=== PATIENT | female | born 1980 | race Caucasian/White ===

== ENCOUNTER 2017-04-26 19:11 | Emergency (ER) | payer BC, OTHER ==
[2017-04-26] MEDS ORDERED: Naprosyn 500 MG PO ONE (19:29)
[2017-04-26] MEDS ORDERED: Rocephin 1000 MG INJ IM ONE (19:29)
--- NOTE | 2017-04-26 19:34 | ERPHSYRPT ---
- History of Present Illness Time Seen by Provider: 04/26/17 19:24 Source: patient Exam Limitations: no limitations Patient Subjective Stated Complaint: Pt C/O sore throat x 5 days with productive cough and itchy throat. Was seen on at clinic for this but throat discomfort has increased since. Triage Nursing Assessment: Pt alert, oriented, answers all questions appropriately. Skin pink, warm, dry. Resps non-labored. Pt ambulatory to tx room, steady gait noted. Rednes noted to posterior pharnyx with exudate present right side. Lung sounds clear all singh. Physician History: FOR THE PAST 5 DAYS PT HAS HAD A SORE THROAT AND COUGH PRODUCTIVE OF GREEN PHLEGM; DENIES VOMITING, CHEST PAIN, SHORTNESS OF AIR. Allergies/Adverse Reactions: Penicillins Allergy (Verified 10/30/12 23:26) Home Medications: Acetaminophen 500 mg [Tylenol Extra Strength 500 mg] 500 mg PO Q4-6HPRN PRN 10/31/12 [History] Fiber [Fiber Choice] 1 each PO QID PRN 10/31/12 [History] Small Red Pill 10/31/12 [History] Hx Tetanus, Diphtheria Vaccination/Date Given: No Hx Influenza Vaccination/Date Given: No Hx Pneumococcal Vaccination/Date Given: No Immunizations Up to Date: Yes - Review of Systems Ears, Nose, & Throat: Throat Pain Respiratory: Cough, No Dyspnea Cardiac: No Chest Pain Abdominal/Gastrointestinal: No Vomiting All Other Systems: Reviewed and Negative - Past Medical History Pertinent Past Medical History: No Neurological History: No Pertinent History ENT History: No Pertinent History Cardiac History: No Pertinent History Respiratory History: No Pertinent History Endocrine Medical History: No Pertinent History Musculoskeletal History: No Pertinent History GI Medical History: No Pertinent History History: No Pertinent History Psycho-Social History: No Pertinent History Female Reproductive Disorders: No Pertinent History - Past Surgical History Past Surgical History: Yes Neuro Surgical History: No Pertinent History Cardiac: No Pertinent History Respiratory: No Pertinent History Gastrointestinal: No Pertinent History Genitourinary: No Pertinent History Musculoskeletal: No Pertinent History Female Surgical History: Section, Tubal Ligation Other Surgical History: tonsillectomy-10/21/12 - Social History Smoking Status: Never smoker Exposure to second hand smoke: No Drug Use: none Patient Lives Alone: No - Female History Hx Last Menstrual Period: 04/06/17 Hx Now: No - Nursing Vital Signs Nursing Vital Signs: Initial Vital Signs Temperature 98.0 F 04/26/17 19:22 Pulse Rate 83 04/26/17 19:22 Respiratory Rate 16 04/26/17 19:22 Blood Pressure 168/92 04/26/17 19:22 O2 Sat by Pulse Oximetry 99 04/26/17 19:22 Pain Scale Pain Intensity 3 - Physical Exam General Appearance: alert Eye Exam: PERRL/EOMI Ears, Nose, Throat Exam: TMs normal, moist mucous membranes, pharyngeal erythema Neck Exam: normal inspection Respiratory Exam: lungs clear Cardiovascular Exam: normal heart sounds Gastrointestinal/Abdomen Exam: normal bowel sounds Back Exam: normal range of motion Neurologic Exam: alert, cooperative Skin Exam: warm, dry SpO2 Interpretation: normal SpO2: 99 Oxygen Delivery: Room Air - Course Nursing assessment & vital signs reviewed: Yes Ordered Tests: Medication Summary Discontinued Medications Generic Name Dose Route Start Last Admin Trade Name Freq PRN Reason Stop Dose Admin Ceftriaxone Sodium 1,000 mg 04/26/17 19:29 Rocephin 1000 Mg Inj IM 04/26/17 19:30 STAT ONE Naproxen 500 mg 04/26/17 19:29 Naprosyn 500 Mg PO 04/26/17 19:30 STAT ONE - Departure Time of Disposition: 19:34 Departure Disposition: Home Clinical Impression: PHARYNGITIS Condition: Stable Critical Care Time: No Referrals: ZEYAD GONZALEZ [Primary Care Provider] - Instructions: Pharyngitis/Tonsillopharyngitis -- Adult Additional Instructions: FOLLOW UP WITH PRIVATE DOCTOR TOMORROW. Prescriptions: Guaifenesin/Codeine Phosphate [Robitussin AC Syrup] 10 ml PO Q4H PRN PRN #120 ml PRN Reason: Cough Azithromycin 250 mg [Zithromax 250 MG TABLET] 250 mg PO ZPACK #6 tablet
[2017-04-26] MEDS ORDERED: XYLOCAINE 1% HCL 20 ML MDV ONE (19:35)
[2017-04-26] MEDS ORDERED: Rocephin 1000 MG INJ ONE (19:35)
[2017-04-26 20:03] VITALS: BP 159/105; PULSE 86; O2SAT 97
== END 2017-04-26 20:00 | disposition home or self-care (01) ==
LOC: ED 19:11
DX: J02.9 Acute pharyngitis, unspecified (principal)
CPT/HCPCS: 96372; 99284; J0696; A9270-GY

== ENCOUNTER 2019-11-11 22:48 | Emergency (ER) | payer SELFPAY ==
[2019-11-11] MEDS ORDERED: Tobrex EYE DROPS 5 ML OP ONE ×2 (23:11→23:13)
--- NOTE | 2019-11-11 23:16 | ERPHSYRPT ---
- History of Present Illness Time Seen by Provider: 11/11/19 23:11 Source: patient Exam Limitations: no limitations Physician History: Patient is a 39-year-old white female who presents with a complaint of pain swelling and watering of the right eye. Location: right eye Severity: moderate Apparent Injury: no Associated Symptoms: burning, itching, redness, matting, eyelid swelling Visual Assistive Devices: None Chemical Exposure: No Trauma: No Welding Arc/Tanning Bed Exposure: No Allergies/Adverse Reactions: Penicillins Allergy (Verified 11/11/19 22:52) Hx Tetanus, Diphtheria Vaccination/Date Given: No Hx Influenza Vaccination/Date Given: No Hx Pneumococcal Vaccination/Date Given: No - Review of Systems Constitutional: No Fever, No Chills Eyes: Discharge, Eye Redness, Itchy, Tearing Ears, Nose, & Throat: No Symptoms Respiratory: No Cough, No Dyspnea Cardiac: No Chest Pain, No Edema, No Syncope Abdominal/Gastrointestinal: No Abdominal Pain, No Nausea, No Vomiting, No Diarrhea Genitourinary Symptoms: No Dysuria Musculoskeletal: No Back Pain, No Neck Pain Skin: No Rash Neurological: No Dizziness, No Focal Weakness, No Sensory Changes Psychological: No Symptoms Endocrine: No Symptoms All Other Systems: Reviewed and Negative - Past Medical History Pertinent Past Medical History: No Neurological History: No Pertinent History ENT History: No Pertinent History Cardiac History: No Pertinent History Respiratory History: No Pertinent History Endocrine Medical History: No Pertinent History Musculoskeletal History: No Pertinent History GI Medical History: No Pertinent History History: No Pertinent History Psycho-Social History: No Pertinent History Female Reproductive Disorders: No Pertinent History - Past Surgical History Past Surgical History: Yes Neuro Surgical History: No Pertinent History Cardiac: No Pertinent History Respiratory: No Pertinent History Gastrointestinal: No Pertinent History Genitourinary: No Pertinent History Musculoskeletal: No Pertinent History Female Surgical History: Section, Tubal Ligation Other Surgical History: tonsillectomy-10/21/12 - Social History Smoking Status: Never smoker Exposure to second hand smoke: No Drug Use: none Patient Lives Alone: No - Physical Exam General Appearance: mild distress Vision Acuity Degree Evaluation Phase: Corrected Vision Acuity Right Eye: 20/20 Vision Acuity Left Eye: 20/20 Eye Exam: right eye: conjunctival inflammation, erythema, eyelid inflammation Ears, Nose, Throat Exam: normal ENT inspection Neck Exam: normal inspection, non-tender Respiratory Exam: normal breath sounds, lungs clear Cardiovascular Exam: regular rate/rhythm Neurologic: alert, oriented x 3 - Course Nursing assessment & vital signs reviewed: Yes - Progress Progress: unchanged - Departure Departure Disposition: Home Clinical Impression: Conjunctivitis Condition: Stable Critical Care Time: No Referrals: ZEYAD GONAZLEZ [Primary Care Provider] - Prescriptions: Tobramycin/Dexamethasone [Tobradex Eye Drops] 10 ml OP TID 5 Days #10 drops.susp
[2019-11-11 23:37] VITALS: BP 150/100; PULSE 78; O2SAT 97
== END 2019-11-11 23:32 | disposition home or self-care (01) ==
LOC: ED 22:48
DX: H10.9 Unspecified conjunctivitis (principal)
CPT/HCPCS: 99283; A9270-GY

== ENCOUNTER 2019-11-13 15:09 | Emergency (ER) | payer SELFPAY ==
--- NOTE | 2019-11-13 15:12 | ERPHSYRPT ---
- History of Present Illness Time Seen by Provider: 11/13/19 15:12 Source: patient Exam Limitations: no limitations Physician History: This is a 39-year-old white female who was seen 2 days ago in this emergency department was diagnosed with conjunctivitis. Her symptoms were on the right eye. Today there is been some similar symptoms in the left eye. In addition, she now has a left inner elbow area of redness and mild rash present. This was not present 2 days ago. She said she has scratched an area and there is a scab present. Patient has not had a fever. Patient states that she did not fill the prescription of TobraDex that was written for her 2 days ago. It was too expensive. She did however, use the antibiotic eyedrops that her sister gave. She does not know the name of it. Patient has not had a fever and she is not short of breath. Location: bilateral eyes Severity: mild Apparent Injury: no Associated Symptoms: burning, itching, redness, matting Allergies/Adverse Reactions: Penicillins Allergy (Verified 11/13/19 15:23) Hx Tetanus, Diphtheria Vaccination/Date Given: No Hx Influenza Vaccination/Date Given: No Hx Pneumococcal Vaccination/Date Given: No Travel Risk - International Travel Have you traveled outside of the country in past 3 weeks: No - Coronavirus Screening Are you exhibiting any of the following symptoms?: No Close contact with a COVID-19 positive Pt in past 14-21 Days: No - Review of Systems Constitutional: No Symptoms Eyes: Eye Redness, Itchy Ears, Nose, & Throat: No Symptoms Respiratory: No Symptoms Cardiac: No Symptoms Abdominal/Gastrointestinal: No Symptoms Genitourinary Symptoms: No Symptoms Musculoskeletal: No Symptoms Skin: Cellulitis (Left inner elbow), Rash, Other Neurological: No Symptoms Psychological: No Symptoms Endocrine: No Symptoms Hematologic/Lymphatic: No Symptoms Immunological/Allergic: No Symptoms All Other Systems: Reviewed and Negative - Past Medical History Pertinent Past Medical History: No Neurological History: No Pertinent History ENT History: No Pertinent History Cardiac History: No Pertinent History Respiratory History: No Pertinent History Endocrine Medical History: No Pertinent History Musculoskeletal History: No Pertinent History GI Medical History: No Pertinent History History: No Pertinent History Psycho-Social History: No Pertinent History Female Reproductive Disorders: No Pertinent History - Past Surgical History Past Surgical History: Yes Neuro Surgical History: No Pertinent History Cardiac: No Pertinent History Respiratory: No Pertinent History Gastrointestinal: No Pertinent History Genitourinary: No Pertinent History Musculoskeletal: No Pertinent History Female Surgical History: Section, Tubal Ligation Other Surgical History: tonsillectomy-10/21/12 - Social History Smoking Status: Never smoker Exposure to second hand smoke: No Drug Use: none Patient Lives Alone: No - Nursing Vital Signs Nursing Vital Signs: Initial Vital Signs Temperature 97 F 11/13/19 15:12 Pulse Rate 77 11/13/19 15:12 Respiratory Rate 16 11/13/19 15:12 Blood Pressure 149/105 11/13/19 15:12 O2 Sat by Pulse Oximetry 98 11/13/19 15:12 - Physical Exam General Appearance: no apparent distress, alert, anxiety Eye Exam: bilateral eye: PERRL, EOMI, conjunctival inflammation Ears, Nose, Throat Exam: normal ENT inspection Neck Exam: normal inspection, non-tender, supple, full range of motion Respiratory Exam: normal breath sounds, lungs clear, airway intact, No chest tenderness, No respiratory distress Cardiovascular Exam: regular rate/rhythm, normal heart sounds, normal peripheral pulses Neurologic: alert, oriented x 3, cooperative, 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, normal mood/affect, nml cerebellar function, nml station & gait, sensation nml Skin Exam: other (Cellulitis well-circumscribed inner aspect left elbow with associated mild rash) Lymphatic: No adenopathy (.) SpO2 Interpretation: normal O2 Delivery: Room Air - Course Nursing assessment & vital signs reviewed: Yes - Progress Progress: unchanged Counseled pt/family regarding: diagnosis, need for follow-up - Departure Departure Disposition: Home Clinical Impression: Conjunctivitis, Cellulitis, Allergic reaction Condition: Stable Critical Care Time: No Referrals: ZEYAD GONZALEZ [Primary Care Provider] - Additional Instructions: Stop the antibiotic-containing eyedrops. Add Benadryl and Pepcid [id number] and take as directed on the package for 5 days. Take your prescription medication as prescribed. Follow-up with your primary care physician for persistent symptoms. Prescriptions: Prednisone 10 mg [Deltasone 10 mg] 10 mg PO TID #12 tablet Cephalexin Mh 500 mg [Keflex 500 mg] 500 mg PO TID #15 capsule
[2019-11-13] MEDS ORDERED: Rocephin 1000 MG INJ IM ONE (15:56)
[2019-11-13] MEDS ORDERED: solu-MEDROL 125 MG IM ONE (15:57)
[2019-11-13] MEDS ORDERED: XYLOCAINE 1% HCL 20 ML MDV ONE (16:02)
[2019-11-13] MEDS ORDERED: Rocephin 1000 MG INJ ONE (16:02)
[2019-11-13] MEDS ORDERED: solu-MEDROL 125 MG ONE (16:02)
[2019-11-13 16:37] VITALS: BP 140/97; PULSE 86; O2SAT 98
== END 2019-11-13 16:37 | disposition home or self-care (01) ==
LOC: ED 15:09
DX: H10.9 Unspecified conjunctivitis (principal); L03.90 Cellulitis, unspecified; T78.40XA Allergy, unspecified, initial encounter; R21 Rash and other nonspecific skin eruption
CPT/HCPCS: 96372; 99284; J0696; J2930